=== PATIENT | female | born 1945 | race Two or more races ===

== ENCOUNTER 2022-12-01 11:34 | Inpatient (IN) | payer OTHER ==
[~2022-12-01] VITALS: Ht 152.4 cm; Wt 73.5 kg
[2022-12-02] MEDS ORDERED: METFORMIN HCL500 M3 PO (08:36)
[2022-12-02] MEDS ORDERED: CHILDREN'S ASPI81 MG PO (08:37)
[2022-12-02] MEDS ORDERED: HYDRODIURIL12.5 MG PO (08:37)
[2022-12-02] MEDS ORDERED: PEPCID AC20 MG PO (08:37)
[2022-12-02] MEDS ORDERED: NORVASC5 MG PO (08:37)
[2022-12-02] MEDS ORDERED: SYNTHROID100 MCG PO (08:38)
[2022-12-02] MEDS ORDERED: COZAAR50 MG PO (08:38)
[2022-12-02] MEDS ORDERED: ZOCOR20 MG PO (08:38)
[2022-12-07] MEDS ORDERED: CLONAZEPAM0.5 MG (08:08)
[2022-12-07] MEDS ORDERED: FLONASE16 GM (08:09)
[2022-12-07] MEDS ORDERED: DICLOFENAC POTA50 MG (08:09)
[2022-12-09] MEDS ORDERED: XARELTO10 MG PO (06:25)
[2022-12-09] MEDS ORDERED: INTEGRA PLUS C1 EACH PO (06:25)
[2022-12-09] MEDS ORDERED: BACTRIM DS TAB1 EACH PO (06:25)
[2022-12-09] MEDS ORDERED: OXYC1TAB9 PO (06:25)
== END 2022-12-10 13:25 | DRG 470 ==
LOC: O/R 12-07 05:35 → SURG 12-07 07:00
PROVIDERS: ADMIT Orthopaedic Surgery Sports Medicine; ATTEND Orthopaedic Surgery Sports Medicine
PROC: 3E0F7SF Introduction of Other Gas into Respiratory Tract, Via Natural or Artificial Opening (ICD-10-PCS; 2022-12-07)
PROC: 0SRD0J9 Replacement of Left Knee Joint with Synthetic Substitute, Cemented, Open Approach (ICD-10-PCS; principal; 2022-12-07 07:00)
DX: M17.12 Unilateral primary osteoarthritis, left knee (principal); I10 Essential (primary) hypertension; E11.9 Type 2 diabetes mellitus without complications; E03.9 Hypothyroidism, unspecified; Z79.84 Long term (current) use of oral hypoglycemic drugs

== ENCOUNTER 2022-12-16 12:50 | Inpatient (IN) | payer OTHER ==
[~2022-12-16] VITALS: Ht 152.4 cm; Wt 71.7 kg
[~2022-12-16 12:50] MED LIST: BACTRIM DS TAB1 EACH PO; CHILDREN'S ASPI81 MG PO; CLONAZEPAM0.5 MG; COZAAR50 MG PO; DICLOFENAC POTA50 MG; FLONASE16 GM; HYDRODIURIL12.5 MG PO; INTEGRA PLUS C1 EACH PO; METFORMIN HCL500 M3 PO; NORVASC5 MG PO; OXYC1TAB9 PO; PEPCID AC20 MG PO; SYNTHROID100 MCG PO; XARELTO10 MG PO; ZOCOR20 MG PO
--- NOTE | 2022-12-16 12:57 | NUR ---
PTE Y FAMILIAR REFIERE QUE LLEVA VARIOS GUADALUPE CON FIEBRE Y DOLOR EN TODO CUERPO
--- NOTE | 2022-12-16 14:49 | NUR ---
PACIENTE EVALUADA POR DR. CAMEJO QUIEN ORDENA TRATAMIENTO. SE EDUCA PACIENTE SOBRE TRATAMIENTO. SE ADMINISTRAN MEDICAMENTOS RENEE ORDEN MEDICA, SE ELVIN MUESTRAS BAJO MEDIDAS ASEPTICAS. SE MANTIENE PACIENTE EN BEATRIS BAJA BARANDAS ELEVADAS.
== END 2022-12-22 14:58 | disposition home or self-care (01) | DRG 641 ==
LOC: ER 12:50 → MEDJ 19:21
PROVIDERS: ADMIT Internal Medicine; ATTEND Internal Medicine
PROC: BW21ZZZ Computerized Tomography (CT Scan) of Abdomen and Pelvis (ICD-10-PCS; principal; 2022-12-17)
DX: E87.1 Hypo-osmolality and hyponatremia (principal); N17.9 Acute kidney failure, unspecified; R65.10 Systemic inflammatory response syndrome (SIRS) of non-infectious origin without acute organ dysfunction; I10 Essential (primary) hypertension; E03.9 Hypothyroidism, unspecified; E11.9 Type 2 diabetes mellitus without complications; Z79.4 Long term (current) use of insulin

== ENCOUNTER 2024-12-05 08:00 | Inpatient (IN) | payer OTHER ==
[~2024-12-05] VITALS: Ht 152.4 cm; Wt 74.8 kg
[2024-12-05 08:49] VITALS: BP 166/78
[2024-12-05 10:26] LABS: PH,URINE 6.5 (5.0-8.0); URINE APPEARANCE Clear; URINE BILIRRUBIN Negative (NEGATIVE); URINE BLOOD Negative; URINE COLOR Yellow; URINE GLUCOSE Negative (NEGATIVE); URINE KETONE Negative (NEGATIVE); URINE LEUKOCYTE Trace; URINE NITRATE Negative; URINE PROTEIN Negative (NEGATIVE); URINE UROBILINOGEN 0.2 E.U./dl
[2024-12-05 10:32] LABS: URINE BACTERIA 40.3 uL (0.0-1933); URINE EPITHELIAL CELLS 11.8 uL (0.0-38.8); URINE WBC 8.3 uL (0.0-23.2)
[2024-12-05 10:38] LABS: EOS # 0.24 (0.04-0.54); EOS % 2.7 % (0.7-7.0); HEMATOCRIT 34.8 % (34.1-44.9); HEMOGLOBIN 11.7 g/dL (11.2-15.7); LYMPH # 3.09 (1.18-3.74); LYMPH % 34.5 % (19.3-53.1); MEAN CORPUSCULAR HEMOGLOBIN 28.5 pg (25.6-32.2); MONO # 0.61 (0.24-0.82); MONO % 6.8 % (4.7-12.5); NEUT # 4.91 (1.56-6.13); NEUT % 54.8 % (34.0-71.1); PLATELET COUNT 263 K/uL (163-369); RED CELL DISTRIBUTION WIDTH 14.2 % (11.6-14.4)
[2024-12-05 10:49] LABS: URINE RBC 1.7 uL (0.0-20.8)
[2024-12-05 11:10] LABS: INR 0.94; PARTIAL THROMBOPLASTIN TIME 27.8 SECONDS (22.0-34.0); PROTHROMBIN TIME 10.3 SECONDS (9.0-11.5)
[2024-12-05 11:33] LABS: ALBUMIN 4.1 gm/dL (3.4-5.0); BILIRUBIN TOTAL 0.52 mg/dL (0.3-1.2); CALCIUM 9.5 mg/dL (8.5-10.1); CREATININE SERUM 0.77 mg/dL (0.55-1.02); GFR 72.69; GLOBULINA 4.1 G/DL (2.4-3.5); POTASSIUM 3.64 mEq/L (3.5-5.1); TOTAL PROTEIN 8.2 gm/dL (6.4-8.2)
[2024-12-05 12:49] LABS: RH POSITIVE
[2024-12-11] MEDS ORDERED: KETOROLAC TROMETHAMINE 60 MG VIAL IM ONE (08:45)
[2024-12-11] MEDS ORDERED: TRANEXAMIC ACID 100MG/1ML (1000MG) AMPUL IV ONE ×2 (08:45)
[2024-12-11] MEDS ORDERED: LIDOCAINE HCL 1%/EPINEPHRINE 20ML VIAL IJ ONE (08:45)
[2024-12-11] MEDS ORDERED: BUPIVACAINE HCL 30 ML VIAL IJ ONE (08:45)
[2024-12-11] MEDS ORDERED: VANCOMYCIN HCL 1,000 MG VIAL IR ONE (08:45)
[2024-12-11] MEDS ORDERED: CEFAZOLIN SODIUM 1,000 MG VIAL IV ONE (08:45)
[2024-12-11] MEDS ORDERED: GENTAMICIN SULFATE 40 MG/ML VIAL IV SCH (10:35)
[2024-12-11] MEDS ORDERED: MORPHINE SULFATE 2 MG/ML CARTRIDGE IV ONE (10:45)
[2024-12-11] MEDS ORDERED: MORPHINE SULFATE 4 MG/ML CARTRIDGE IV PRN (10:45)
[2024-12-11] MEDS ORDERED: SODIUM CHLORIDE 0.45 % 1,000 ML IV SCH (10:45)
[2024-12-11] MEDS ORDERED: ONDANSETRON HCL 2 MG/ML VIAL IV PRN (10:45)
[2024-12-11] MEDS ORDERED: MORPHINE SULFATE 4 MG/ML VIAL IV ONE ×2 (11:00→11:30)
[2024-12-11] MEDS ORDERED: CEFAZOLIN SODIUM 1,000 MG VIAL IV SCH (12:00)
[2024-12-11 15:40] VITALS: BP 140/71; O2SAT 99
[2024-12-11] MEDS ORDERED: MetFORMIN HCL 500 MG TABLET PO SCH (17:00)
[2024-12-11] MEDS ORDERED: SIMVASTATIN 20 MG TABLET PO SCH (17:00)
[2024-12-11] MEDS ORDERED: FAMOtidine 20 MG TABLET PO SCH (21:00)
[2024-12-12 00:56] VITALS: BP 147/72; O2SAT 96
[2024-12-12] MEDS ORDERED: LEVOTHYROXINE SODIUM 100 MCG TABLET PO SCH (06:00)
[2024-12-12 06:12] LABS: HEMATOCRIT 30.9 % (34.1-44.9); HEMOGLOBIN 10.7 g/dL (11.2-15.7); RED BLOOD COUNT 3.57 M/uL (3.93-5.22)
[2024-12-12 07:07] LABS: HEMATOCRIT 29.2 % (34.1-44.9); HEMOGLOBIN 9.7 g/dL (11.2-15.7); RED BLOOD COUNT 3.42 M/uL (3.93-5.22)
[2024-12-12 07:08] LABS: BASO % 0.3 % (0.1-1.2); EOS # 0.33 (0.04-0.54); EOS % 5.1 % (0.7-7.0); LYMPH # 1.77 (1.18-3.74); LYMPH % 27.1 % (19.3-53.1); MEAN CORPUSCULAR HEMOGLOBIN 28.4 pg (25.6-32.2); MONO # 0.45 (0.24-0.82); MONO % 6.9 % (4.7-12.5); NEUT # 3.95 (1.56-6.13); NEUT % 60.4 % (34.0-71.1); PLATELET COUNT 234 K/uL (163-369)
[2024-12-12 08:02] VITALS: BP 130/60; O2SAT 97
[2024-12-12] MEDS ORDERED: ACETAMINOPHEN WITH CODEINE 1 UDTAB TABLET PO PRN (08:15)
[2024-12-12] MEDS ORDERED: AMLODIPINE BESYLATE 5 MG TABLET PO SCH (09:00)
[2024-12-12] MEDS ORDERED: SENNA/DOCUSATE SODIUM 1 TAB TABLET PO SCH (09:00)
[2024-12-12] MEDS ORDERED: RIVAROXABAN 10 MG TAB PO SCH (09:00)
[2024-12-12] MEDS ORDERED: LOSARTAN POTASSIUM 50 MG TABLET PO SCH (09:00)
[2024-12-12] MEDS ORDERED: CELECOXIB 200 MG CAPSULE PO SCH (09:00)
[2024-12-12] MEDS ORDERED: HYDROCHLOROTHIAZIDE 12.5 MG CAPSULE PO SCH (09:00)
[2024-12-12] MEDS ORDERED: BACITRACIN 28.35 GM OINT.TUBE TOP SCH (09:00)
[2024-12-12] MEDS ORDERED: IRON FUM,PS/FOLIC/BCOMP,C NO.9 1 CAP CAPSULE PO SCH (09:00)
[2024-12-12 16:34] VITALS: BP 163/72; O2SAT 99
[2024-12-12] MEDS ORDERED: SOD FERRIC GLUC COMPLX/SUCROSE 62.5 MG in 0.9 % SODIUM CHLORIDE 50 ML IV SCH (17:00)
[2024-12-13 01:03] VITALS: BP 155/69; O2SAT 96
[2024-12-13] MEDS ORDERED: ACETAMINOPHEN-1 EAC2 PO (06:44)
[2024-12-13] MEDS ORDERED: INTEGRA PLUS C1 EACH PO (06:44)
[2024-12-13] MEDS ORDERED: BACTRIM DS TAB1 EACH PO (06:44)
[2024-12-13] MEDS ORDERED: XARELTO10 MG PO (06:44)
[2024-12-13 06:49] LABS: BASO % 0.4 % (0.1-1.2); EOS # 0.37 (0.04-0.54); EOS % 5.4 % (0.7-7.0); HEMATOCRIT 29.1 % (34.1-44.9); HEMOGLOBIN 9.9 g/dL (11.2-15.7); LYMPH # 1.87 (1.18-3.74); LYMPH % 27.2 % (19.3-53.1); MEAN CORPUSCULAR HEMOGLOBIN 28.2 pg (25.6-32.2); MONO # 0.58 (0.24-0.82); MONO % 8.4 % (4.7-12.5); NEUT % 58.3 % (34.0-71.1); PLATELET COUNT 254 K/uL (163-369); RED BLOOD COUNT 3.51 M/uL (3.93-5.22); RED CELL DISTRIBUTION WIDTH 13.5 % (11.6-14.4)
[2024-12-13 08:13] VITALS: BP 148/71; O2SAT 96
[2024-12-13] MEDS ORDERED: SULFAMETHOXAZOLE/TRIMETHOPRIM DS 1 TAB PO SCH (09:00)
[2024-12-13 11:27] LABS: COVID-19 AG NEGATIVE (NEGATIVE)
== END 2024-12-13 16:56 | disposition home health service (06) | DRG 470 ==
LOC: O/R 12-11 05:30 → SURG 12-11 05:30 → SURH 12-11 07:00 → SURG 12-11 10:56
PROVIDERS: ADMIT Orthopaedic Surgery Sports Medicine; ATTEND Orthopaedic Surgery Sports Medicine
PROC: 0SRC0J9 Replacement of Right Knee Joint with Synthetic Substitute, Cemented, Open Approach (ICD-10-PCS; principal; 2024-12-11 07:00)
DX: M17.11 Unilateral primary osteoarthritis, right knee (principal); I10 Essential (primary) hypertension; E03.9 Hypothyroidism, unspecified